=== PATIENT | female | born 1970 ===

== ENCOUNTER 2017-05-26 05:35 | Day surgery (SDC) | payer OTHER ==
[2017-05-26] MEDS ORDERED: PERCOCET 5-3251 EACH PO (09:31)
[2017-05-26] MEDS ORDERED: RECTICARE30 GM TOP (09:31)
== END 2017-05-26 14:25 | disposition home or self-care (01) ==
LOC: CIR.AMB 05:35
DX: K64.8 Other hemorrhoids (principal); K92.1 Melena